=== PATIENT | female | born 1945 | race Caucasian/White ===

== ENCOUNTER 2019-07-05 14:16 | Outpatient (CLI) | payer MEDICARE ==
--- NOTE | 2019-07-05 15:04 | BD ---
DEXA BONE DENSITY STUDY: Date: 07/05/2019 HISTORY: Osteoporosis. FINDINGS/IMPRESSION: Lumbar Spine: BMD (g/cm2) L1 0.823 T-Score: -1.5 L2 0.820 T-Score: -1.9 L3 0.906 T-Score: -1.6 L4 0.859 T-Score: -1.8 L1-L4 0.954 T-Score: -1.8 Evidence for osteopenia with increased risk for fracture. Left Femoral Neck: 0.524 T-Score: -2.9 Total Femur: 0.673 T-Score: =2.2 Evidence for osteoporosis with high risk for fracture. POS: RRE
== END 2019-07-05 14:17 | disposition home or self-care (01) ==
LOC: BICMAMMO 14:16
PROVIDERS: ATTEND Nurse Practitioner
DX: M81.0 Age-related osteoporosis without current pathological fracture (principal); M85.88 Other specified disorders of bone density and structure, other site
CPT/HCPCS: 77080